=== PATIENT | male | born 1975 | race African-American/Black ===

== ENCOUNTER 2022-01-01 08:35 | Outpatient (CLI) | payer BC, SELFPAY ==
--- NOTE | ~2022-01-01 | MR_ITS ---
EXAMINATION: MR elbow RT wo con DATE: 01/01/2022 09:35 INDICATION: Biceps tendon tear with right elbow pain TECHNIQUE: Magnetic resonance imaging (MRI) of the right elbow was performed without intravenous cont rast. Sequences included coronal, axial, and sagittal PD-weighted FS FSE and coronal, axial, and sagi ttal PD-weighted FSE. COMPARISON: None FINDINGS: Osseous/other: Normal alignment. Normal marrow signal with no marrow edema, fracture, osteochondral lesion or patho logic marrow replacing process. Mild osteoarthritis at the right elbow. Tendons: Complete avulsion of the biceps brachii tendon from its radial insertion. The biceps tendon is retrac walker 10 cm proximally and folded along the distal margin of the biceps muscle. Brachialis tendon is no rmal. Couple small enthesopathic ossicles and mild tendinopathy without tear at the distal triceps te ndon. Common flexor tendon wad is normal. The common extensor tendon wad is normal. Ligaments: The medial and lateral collateral ligament complexes are normal. Cubital tunnel: Cubital tunnel is unremarkable with normal signal and caliber of the ulnar nerve. Fluid: Physiologic amount of fluid the elbow joint. IMPRESSION: 1. Complete avulsion and 10 cm proximal retraction of the biceps brachii tendon from its radial tuber osity attachment. Reviewed, dictated and finalized at location A. [facility] [employer] IMPRESSION: 1. Complete avulsion and 10 cm proximal retraction of the biceps brachii tendon from its radial tuberosity attachment.
== END 2022-01-01 08:36 | disposition home or self-care (01) ==
PROVIDERS: PCP Internal Medicine; Visit Provider Orthopaedic Surgery Orthopaedic Surgery of the Spine
DX: S46.219A Strain of muscle, fascia and tendon of other parts of biceps, unspecified arm, initial encounter (principal); M25.521 Pain in right elbow; S46.291A Other injury of muscle, fascia and tendon of other parts of biceps, right arm, initial encounter
CPT/HCPCS: 73221